=== PATIENT | female | born 1995 | race Hispanic/Latino ===

== ENCOUNTER 2021-07-26 18:51 | Emergency (ER) | payer OTHER ==
[~2021-07-26] VITALS: Ht 170.2 cm; Wt 92.2 kg
--- OUTSIDE RECORDS SUMMARY | 2021-07-26 22:46 | XMS ---
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 [facility] VISIT COUNT (12 MO.) Kisha Laws TOTAL 1 NOTE: Visits indicate total known visits. ED/UCC VISIT TRACKING (12 MO.) 07/26/2021 18:51 DENIS[facility] Emmanuel OR TYPE: Emergency COMPLAINT: - COLD SYMPTOMS INPATIENT VISIT TRACKING (12 MO.) No inpatient visits to display in this time frame [email or web address]
== END 2021-07-27 00:54 | disposition home or self-care (01) ==
LOC: ED 18:51
DX: U07.1 COVID-19 (principal); R10.9 Unspecified abdominal pain
CPT/HCPCS: 71045; 74176; 80053; 81001; 83605; 83690; 84703; 85025; 99284-25; C9803; U0003